=== PATIENT | male | born 1950 | race American Indian/Alaskan Native ===

== ENCOUNTER 2017-04-25 19:23 | Emergency (ER) | payer SELFPAY ==
[~2017-04-25] VITALS: Ht 165.1 cm; Wt 82.0 kg
[2017-04-25] MEDS ORDERED: KETOROLAC 60MG/2ML VIAL IM ONE (23:30)
[2017-04-26] MEDS ORDERED: DIAZEPAM 5 MG TABLET PO ONE
[2017-04-26 01:00] VITALS: BP 128/79
== END 2017-04-26 01:20 | disposition home or self-care (01) ==
LOC: ER 19:23
DX: M54.5 Low back pain (principal); I10 Essential (primary) hypertension; E78.00 Pure hypercholesterolemia, unspecified; E11.9 Type 2 diabetes mellitus without complications; W18.43XA Slipping, tripping and stumbling without falling due to stepping from one level to another, initial encounter; Y93.89 Activity, other specified; Y92.89 Other specified places as the place of occurrence of the external cause; Y99.8 Other external cause status
CPT/HCPCS: 96372; 99283; J1885

== ENCOUNTER 2024-06-09 10:28 | Emergency (ER) | payer MEDICARE, MEDICAID ==
[~2024-06-09] VITALS: Ht 165.1 cm; Wt 81.6 kg
[2024-06-09 10:38] VITALS: O2SAT 98
[2024-06-09] MEDS: KETOROLAC 30MG/ML VIAL IM ONE (11:00)
[2024-06-09] MEDS: LIDOCAINE 5% PATCH TOP SCH (11:00)
[2024-06-09] MEDS ORDERED: LIDO700A15 TP (11:54)
[2024-06-09] MEDS ORDERED: TOPUD MT (11:54)
[2024-06-09 12:50] VITALS: BP 151/79; PULSE 61; RESP 18; TEMP 97.8
== END 2024-06-09 12:52 | disposition home or self-care (01) ==
LOC: ER 10:28
DX: S39.012A Strain of muscle, fascia and tendon of lower back, initial encounter (principal); I10 Essential (primary) hypertension; E78.00 Pure hypercholesterolemia, unspecified; E11.9 Type 2 diabetes mellitus without complications; W18.30XA Fall on same level, unspecified, initial encounter; Y93.89 Activity, other specified; Y92.89 Other specified places as the place of occurrence of the external cause; Y99.8 Other external cause status
CPT/HCPCS: 99283; 72100; 96372; J1885

== ENCOUNTER 2024-11-20 16:28 | Emergency (ER) | payer MEDICARE, MEDICAID ==
[~2024-11-20 16:28] MED LIST: LIDO700A15 TP; TOPUD MT
== END 2024-11-20 16:45 | disposition left against medical advice (07) ==
LOC: ER 16:28
DX: R30.9 Painful micturition, unspecified (principal); Z53.21 Procedure and treatment not carried out due to patient leaving prior to being seen by health care provider